=== PATIENT | male | born 1995 | race African-American/Black ===

== ENCOUNTER → 2018-10-19 | Outpatient (CLI) | payer MEDICAID, BC ==
--- NOTE | 2018-10-19 08:25 | MR ---
EXAMINATION TYPE: MR brain wo con DATE OF EXAM: 10/19/2018 COMPARISON: NONE HISTORY: 23-year-old male Headache TECHNIQUE: Multiplanar, multisequence images of the brain and brainstem were acquired without IV con trast. Diffusion weighted imaging is performed. FINDINGS: No evidence for acute infarction, hemorrhage, mass, mass effect, midline shift, herniation, effacemen t of basal cisterns, or extra-axial fluid collection. The ventricles and sulci are age-appropriate. Major intracranial flow voids are intact. T2/FLAIR weighted sequences show a solitary punctate 2 mm bright signal focus in the subcortical valente on of the right frontal lobe. Midline structures demonstrate normal morphology. Normal variation with persistent CSP. The craniocer vical junction is normal. Slight rightward nasal septal deviation. Scattered trace to mild mucosal thickening ethmoid air cells and maxillary sinuses. Globes are intact. IMPRESSION: 1. No acute intracranial abnormality seen. 2. Solitary punctate 2 mm right white matter focus in the subcortical right frontal lobe. This is non specific. In the setting of headaches, consider minimal change related to chronic migraines 3. Mild chronic ethmoid and maxillary sinus disease.
== END | disposition home or self-care (01) ==
LOC: RADMRIMAIN 06:22
PROVIDERS: ATTEND Nurse Practitioner Family
DX: R90.82 White matter disease, unspecified (principal)
CPT/HCPCS: 70551

== ENCOUNTER → 2019-12-13 | Outpatient (CLI) | payer MEDICAID, BC ==
[2019-12-13 13:22] LABS: Basophils % (A) 1 %; Eosinophils % (A) 1 %; HCT 47.7 % (39.0-53.0); HGB 15.4 gm/dL (13.0-17.5); Lymphocytes # (A) 3.1 k/uL (1.0-4.8); Lymphocytes % (A) 46 %; MCH 28.4 pg (25.0-35.0); MCHC 32.3 g/dL (31.0-37.0); MCV 88.1 fL (80.0-100.0); Mean Platelet Volume 8.3; Monocytes # (A) 0.4 k/uL (0-1.0); Monocytes % (A) 6 %; Neutrophils # (A) 3.1 k/uL (1.3-7.7); Neutrophils % (A) 46 %; Platelet Count 259 k/uL (150-450); RBC 5.42 m/uL (4.30-5.90); RDW 13.3 % (11.5-15.5); WBC 6.8 k/uL (3.8-10.6)
[2019-12-13 20:10] LABS: Albumin 4.5 g/dL (3.80-4.90); Albumin/Globulin Ratio 1.8 (1.60-3.17); Anion Gap 8.9 mmol/L (4.00-12.00); BUN/Creat Ratio 7.78 Ratio (12.00-20.00); Calcium 9.5 mg/dL (8.7-10.3); Carbon Dioxide 24.1 mmol/L (21.6-31.8); Chol/HDL Ratio 2.68; Globulin 2.5 g/dL (1.6-3.3); LDL Cholesterol,Calculated 62.4 mg/dL (0.0-131.0); Total Bilirubin 0.5 mg/dL (0.3-1.2); VLDL Calculation 11.6 mg/dL (5.00-40.00)
[2019-12-13 20:18] LABS: T4, Free (Free Thyroxine) 1.1 ng/dL (0.80-1.80)
== END | disposition home or self-care (01) ==
LOC: LABWHC1 11:25
PROVIDERS: ATTEND Family Medicine
DX: Z00.00 Encounter for general adult medical examination without abnormal findings (principal); R11.0 Nausea; R42 Dizziness and giddiness
CPT/HCPCS: 36415; 80053; 80061; 84439; 84443; 85025

== ENCOUNTER 2020-07-30 21:43 | Emergency (ER) | payer MEDICAID, BC ==
[2020-07-30 22:14] LABS: Glucose,Whole Blood 74 mg/dL (75-99)
[2020-07-30 22:15] VITALS: TEMP 98.6
[2020-07-31] MEDS ORDERED: SODIUM CHLORIDE 0.9% 1,000 ML IV STA (00:20)
--- NOTE | 2020-07-31 00:22 | ED ---
General Adult HPI - General Chief complaint: Nausea/Vomiting/Diarrhea Stated complaint: Dizziness, lightheadedness Time Seen by Provider: 07/31/20 00:02 Source: patient, RN notes reviewed Mode of arrival: ambulatory Limitations: no limitations - History of Present Illness Initial comments: Patient is a 25-year-old male that presents to the emergency room complaining of some mild abdominal discomfort. He notes that he's been having chronic issues that he's been to his primary care for but they're unable to help him. He noted that last time at his primary care they told that all his lab work looked normal, he's had elevated blood pressure and low blood sugar. Patient is moderately overweight. He does appear well-hydrated and well-appearing well- groomed while lying in bed during the exam and interview. He denied any nausea vomiting diarrhea constipation fever fatigue chills chest pain shortness of breath weakness numbness tingling. - Related Data Home Medications Medication Instructions Recorded Confirmed No Known Home Medications 04/16/14 04/16/14 Allergies Allergy/AdvReac Type Severity Reaction Status Date / Time No Known Allergies Allergy Verified 07/30/20 22:15 Review of Systems ROS Statement: Those systems with pertinent positive or pertinent negative responses have been documented in the HPI. ROS Other: All systems not noted in ROS Statement are negative. Past Medical History Past Medical History: No Reported History History of Any Multi-Drug Resistant Organisms: None Reported Past Surgical History: No Surgical Hx Reported Past Psychological History: No Psychological Hx Reported Past Alcohol Use History: None Reported Past Drug Use History: None Reported General Exam Limitations: no limitations General appearance: alert, in no apparent distress, obese Head exam: Present: atraumatic, normocephalic, normal inspection Eye exam: Present: normal appearance, PERRL, EOMI. Absent: scleral icterus, conjunctival injection, periorbital swelling Neck exam: Present: normal inspection. Absent: tenderness, meningismus, lymphadenopathy Respiratory exam: Present: normal lung sounds bilaterally. Absent: respiratory distress, wheezes, rales, rhonchi, stridor Cardiovascular Exam: Present: regular rate, normal rhythm, normal heart sounds. Absent: systolic murmur, diastolic murmur, rubs, gallop, clicks GI/Abdominal exam: Present: soft, normal bowel sounds. Absent: distended, tenderness, guarding, rebound, rigid Extremities exam: Present: normal inspection, full ROM, normal capillary refill. Absent: tenderness, pedal edema, joint swelling, calf tenderness Neurological exam: Present: alert, oriented X3, CN II-XII intact Psychiatric exam: Present: normal affect, normal mood Skin exam: Present: warm, dry, intact, normal color. Absent: rash Course Vital Signs 07/30/20 22:11 Temperature 98.6 F Pulse Rate 69 Respiratory 18 Rate Blood Pressure 146/90 O2 Sat by Pulse 98 Oximetry Medical Decision Making - Medical Decision Making 25-year-old male with several chronic complaints and no real acute issue minus some mild abdominal pain. Basic labs, 1 L normal saline, KUB ordered. X-ray negative for any acute process. Labs unremarkable, blood glucose 74, will give patient a snack. Case discussed with Dr. Blanca, patient can discharge home with follow-up primary care - Lab Data Result diagrams: 07/31/20 00:19 07/31/20 00:19 Lab Results 07/30/20 07/31/20 07/31/20 Range/Units 22:12 00:19 00:19 WBC 10.6 (3.8-10.6) k/uL RBC 5.33 (4.30-5.90) m/uL Hgb 15.9 (13.0-17.5) gm/dL Hct 45.9 (39.0-53.0) % MCV 86.2 (80.0-100.0) fL MCH 29.9 (25.0-35.0) pg MCHC 34.6 (31.0-37.0) g/dL RDW 13.2 (11.5-15.5) % Plt Count 255 (150-450) k/uL MPV 8.1 Neutrophils % 61 % Lymphocytes % 32 % Monocytes % 5 % Eosinophils % 1 % Basophils % 0 % Neutrophils # 6.4 (1.3-7.7) k/uL Lymphocytes # 3.3 (1.0-4.8) k/uL Monocytes # 0.5 (0-1.0) k/uL Eosinophils # 0.2 (0-0.7) k/uL Basophils # 0.0 (0-0.2) k/uL Sodium 138 (137-145) mmol/L Potassium 3.9 (3.5-5.1) mmol/L Chloride 104 (98-107) mmol/L Carbon Dioxide 26 (22-30) mmol/L Anion Gap 8 mmol/L BUN 13 (9-20) mg/dL Creatinine 0.83 (0.66-1.25) mg/dL Est GFR (CKD-EPI)AfAm >90 (>60 ml/min/1.73 sqM) Est GFR (CKD-EPI)NonAf >90 (>60 ml/min/1.73 sqM) Glucose 108 H (74-99) mg/dL POC Glucose (mg/dL) 74 L (75-99) mg/dL POC Glu Singing Waiter Or Waitress ID Hanny Hollingsworth Calcium 9.1 (8.4-10.2) mg/dL Total Bilirubin 0.3 (0.2-1.3) mg/dL AST 22 (17-59) U/L ALT 20 (4-49) U/L Alkaline Phosphatase 64 (38-126) U/L Total Protein 7.3 (6.3-8.2) g/dL Albumin 4.4 (3.5-5.0) g/dL Urine Color Urine Appearance (Clear) Urine pH (5.0-8.0) Ur Specific [place] (1.001-1.035) Urine Protein (Negative) Urine Glucose (UA) (Negative) Urine Ketones (Negative) Urine Blood (Negative) Urine Nitrite (Negative) Urine Bilirubin (Negative) Urine Urobilinogen (<2.0) mg/dL Ur Leukocyte Esterase (Negative) 07/31/20 Range/Units 01:12 WBC (3.8-10.6) k/uL RBC (4.30-5.90) m/uL Hgb (13.0-17.5) gm/dL Hct (39.0-53.0) % MCV (80.0-100.0) fL MCH (25.0-35.0) pg MCHC (31.0-37.0) g/dL RDW (11.5-15.5) % Plt Count (150-450) k/uL MPV Neutrophils % % Lymphocytes % % Monocytes % % Eosinophils % % Basophils % % Neutrophils # (1.3-7.7) k/uL Lymphocytes # (1.0-4.8) k/uL Monocytes # (0-1.0) k/uL Eosinophils # (0-0.7) k/uL Basophils # (0-0.2) k/uL Sodium (137-145) mmol/L Potassium (3.5-5.1) mmol/L Chloride (98-107) mmol/L Carbon Dioxide (22-30) mmol/L Anion Gap mmol/L BUN (9-20) mg/dL Creatinine (0.66-1.25) mg/dL Est GFR (CKD-EPI)AfAm (>60 ml/min/1.73 sqM) Est GFR (CKD-EPI)NonAf (>60 ml/min/1.73 sqM) Glucose (74-99) mg/dL POC Glucose (mg/dL) (75-99) mg/dL POC Glu Singing Waiter Or Waitress ID Calcium (8.4-10.2) mg/dL Total Bilirubin (0.2-1.3) mg/dL AST (17-59) U/L ALT (4-49) U/L Alkaline Phosphatase (38-126) U/L Total Protein (6.3-8.2) g/dL Albumin (3.5-5.0) g/dL Urine Color Yellow Urine Appearance Clear (Clear) Urine pH 6.5 (5.0-8.0) Ur Specific [place] 1.025 (1.001-1.035) Urine Protein Negative (Negative) Urine Glucose (UA) Negative (Negative) Urine Ketones Negative (Negative) Urine Blood Negative (Negative) Urine Nitrite Negative (Negative) Urine Bilirubin Negative (Negative) Urine Urobilinogen <2.0 (<2.0) mg/dL Ur Leukocyte Esterase Negative (Negative) - Radiology Data Radiology results: report reviewed, image reviewed KUB: Nonobstructive bowel gas pattern. No free air. Disposition Clinical Impression: Abdominal pain Disposition: HOME SELF-CARE Condition: Stable Instructions (If sedation given, give patient instructions): Abdominal Pain (ED) Additional Instructions: Please return to the Emergency Department if symptoms worsen or any other concerns. Eat small snacks started that acute blood sugar. Follow-up with primary care in 1-3 days. Daily referral to a decal decorator and/or treasury manager if needed. Increase oral fluids. Is patient prescribed a controlled substance at d/c from ED?: No Referrals: Dave Aguayo MD [Primary Care Provider] - 1-2 days Time of Disposition: 01:40
--- NOTE | 2020-07-31 00:53 | XR ---
EXAM: XR Abdomen, 2 Views CLINICAL HISTORY: ITS.REASON XR Reason: Abdominal pain TECHNIQUE: Frontal view of the abdomen/pelvis with upright view of the abdomen. COMPARISON: No relevant prior studies available. FINDINGS: Intraperitoneal space: No free air. Gastrointestinal tract: Unremarkable. No dilation. Mild fecal burden throughout the colon Bones/joints: Unremarkable. IMPRESSION: Nonobstructive bowel gas pattern. No free air.
[2020-07-31 01:01] LABS: Basophils % (A) 0 %; Eosinophils # (A) 0.2 k/uL (0-0.7); Eosinophils % (A) 1 %; HCT 45.9 % (39.0-53.0); HGB 15.9 gm/dL (13.0-17.5); Lymphocytes # (A) 3.3 k/uL (1.0-4.8); Lymphocytes % (A) 32 %; MCH 29.9 pg (25.0-35.0); MCHC 34.6 g/dL (31.0-37.0); MCV 86.2 fL (80.0-100.0); Mean Platelet Volume 8.1; Monocytes # (A) 0.5 k/uL (0-1.0); Monocytes % (A) 5 %; Neutrophils # (A) 6.4 k/uL (1.3-7.7); Neutrophils % (A) 61 %; Platelet Count 255 k/uL (150-450); RBC 5.33 m/uL (4.30-5.90); RDW 13.2 % (11.5-15.5); WBC 10.6 k/uL (3.8-10.6)
[2020-07-31 01:14] LABS: ALT 20 U/L (4-49); AST 22 U/L (17-59); African American GFR (CKD) >90 (>60 ml/min/1.73 sqM); Albumin 4.4 g/dL (3.5-5.0); Alkaline Phosphatase 64 U/L (38-126); Anion Gap 8 mmol/L; Blood Urea Nitrogen 13 mg/dL (9-20); Calcium 9.1 mg/dL (8.4-10.2); Carbon Dioxide 26 mmol/L (22-30); Chloride 104 mmol/L (98-107); Glucose 108 mg/dL (74-99); Non-African American GFR(CKD) >90 (>60 ml/min/1.73 sqM); Potassium 3.9 mmol/L (3.5-5.1); Sodium 138 mmol/L (137-145); Total Bilirubin 0.3 mg/dL (0.2-1.3); Total Protein 7.3 g/dL (6.3-8.2)
[2020-07-31] MEDS ORDERED: ONDANSETRON 4 MG/2 ML VIAL IVP STA (01:15)
[2020-07-31 01:34] LABS: Appearance,Urine Clear (Clear); Bilirubin,Urine Negative (Negative); Blood,Urine Negative (Negative); Color,Urine Yellow; Glucose,Urine (UA) Negative (Negative); Ketones,Urine Negative (Negative); Leukocyte Esterase,Urine Negative (Negative); Nitrite,Urine Negative (Negative); PH, Urine 6.5 (5.0-8.0); Protein,Urine Negative (Negative); Specific Gravity,Urine 1.025 (1.001-1.035); Urobilinogen,Urine <2.0 mg/dL (<2.0)
[2020-07-31 02:00] VITALS: BP 130/91; PULSE 66; RESP 16
== END 2020-07-31 02:02 | disposition home or self-care (01) ==
LOC: EC 21:43
DX: R10.9 Unspecified abdominal pain (principal); R42 Dizziness and giddiness; E66.3 Overweight; Z68.35 Body mass index [BMI] 35.0-35.9, adult
CPT/HCPCS: 36415 ×2; 80053; 85025; 81003; 74018; 99284; 96374; 96361; J2405